=== PATIENT | female | born 1945 | race Hispanic/Latino ===

== ENCOUNTER 2017-03-04 08:41 | Outpatient (CLI) | payer BC, MEDICARE ==
--- OUTSIDE RECORDS SUMMARY | 2017-03-04 12:13 | XMS | Clinical Summary ---
:1945 Author Organization [facility] Address [address] [place] [address] Phone Care Team Providers Name Role Phone , Primary Care Provider Unavailable Allergies Active Allergy Reactions Severity Noted Date Comments Hydrocodone 02/05/2013 Current Medications No known medications Active Problems Not on file Social History Tobacco Use Types Packs/Day Years Used Date Former Smoker Quit: 08/26/2012 Alcohol Use Drinks/Week oz/Week Comments No Sex Assigned at Date Recorded Not on file Last Filed Vital Signs Vital Sign Reading Time Taken Blood Pressure 140/67 08/02/2014 12:35 PM CDT Pulse 89 08/02/2014 12:35 PM CDT Temperature 36.3 C (97.4 F) 08/02/2014 11:23 AM CDT Respiratory Rate 18 08/02/2014 12:35 PM CDT Oxygen Saturation 98% 08/02/2014 12:35 PM CDT Inhaled Oxygen Concentration - - Weight 74.4 kg (164 lb) 02/05/2013 4:19 PM CDT Height 152.4 cm (5') 02/05/2013 4:19 PM CDT Body Mass Index 32.03 02/05/2013 4:19 PM CDT Plan of Treatment Not on file Results Not on filefrom Last 3 Months
== END 2017-03-04 08:42 | disposition home or self-care (01) ==
PROVIDERS: ATTEND Family Medicine
DX: R13.10 Dysphagia, unspecified (principal); K21.9 Gastro-esophageal reflux disease without esophagitis
CPT/HCPCS: 74230; G8996-GN-CJ; G8997-GN-CJ; G8998-GN-CJ

== ENCOUNTER 2017-03-25 20:30 | Outpatient (CLI) | payer BC, MEDICARE | END 2017-03-25 20:31 | disposition home or self-care (01) | LOC: SLEEPLAB 20:30 | PROVIDERS: ATTEND Family Medicine | DX: G47.33 Obstructive sleep apnea (adult) (pediatric) (principal); E11.9 Type 2 diabetes mellitus without complications; I10 Essential (primary) hypertension | CPT/HCPCS: 95811 ==

== ENCOUNTER 2019-02-18 03:53 | Observation (INO) | payer BC, MEDICARE ==
[2019-02-18] MEDS ORDERED: Morphine 4 MG/ML VIAL SLOW IVP SCH (04:15)
[2019-02-18] MEDS ORDERED: Senokot S 8.6-50 MG TAB PO PRN (04:22)
[2019-02-18] MEDS ORDERED: Acetaminophen 325 MG TAB PO PRN (04:22)
[2019-02-18] MEDS ORDERED: Calcium Carbonate 500 MG ChewTAB PO PRN (04:22)
[2019-02-18] MEDS: Ondansetron PF 4 MG/2 ML Vial SLOW IVP PRN ×2 (04:24→20:40)
[2019-02-18] MEDS ORDERED: Prochlorperazine Maleate 5 MG TAB PO PRN (04:31)
[2019-02-18] MEDS ORDERED: Diphenoxylate HCl/Atropine Tablet PO PRN (04:31)
[2019-02-18] MEDS ORDERED: Ondansetron ODT 4 MG TAB PO PRN (04:31)
[2019-02-18] MEDS ORDERED: Dextrose 5% in Water 1,000 ML IV PRN (04:36)
[2019-02-18] MEDS ORDERED: Dextrose 50% Abboject 50 ML SYRINGE SLOW IVP PRN (04:36)
[2019-02-18] MEDS ORDERED: Dexamethasone 4 MG TAB PO SCH (04:45)
--- NOTE | 2019-02-18 04:47 | PDOC.FPRHP ---
- History of Present Illness Chief Complaint: Vomiting, Abdominal Pain History of Present Illness: Patient is a 73 yo female who presents as a direct admission from [place] ED where she originally presented with complaint of crampy & achy abdominal pain for 3 days. This was accompanied by back pain, nausea, and vomiting. Patient usually takes chemo every 4 days, and these symptoms started shortly after her most recent dose. Patient was diagnosed with Pancreatic cancer stage 4 in Jan 2019 with mets to bladder. Previously has hx of colon cancer in 2012 with colon resection and colostomy in place. In [place] ED she was given Zofran 8 mg IV and IV morphine 4 mg. She also had a positive UA for LE, WBCs, RBCs, 2+ bacteria and was given 1 dose Rocephin. Patient's oncologist at [facility] was called from [place] and stated that patient additionally was recently found to have mesenteric mets. Denies fever/chills, diarrhea, constipation, headache, vision or hearing changes. ED Course: Given 1L NS bolus, then 250/hr; Novolin 5 units, Rocephin 1 g @2345, Morphine 4mg x 1 dose, Zofran 8 mg x 1 dose - Allergies/Adverse Reactions Allergies Allergy/AdvReac Type Severity Reaction Status Date / Time codeine Allergy Mild Hives Verified 10/06/15 08:59 - Home Medications Medication Instructions Recorded Confirmed Type Valsartan [Diovan] 160 mg PO HS 10/06/15 02/18/19 History glipiZIDE [Glucotrol XL] 10 mg PO BID 10/06/15 02/18/19 History sitaGLIPtin Phosphate [Januvia] 100 mg PO DAILY 10/06/15 02/18/19 History Amlodipine [Norvasc] 5 mg PO DAILY 02/18/19 02/18/19 History Aspirin [Ecotrin Low Strength] 81 mg PO DAILY 02/18/19 02/18/19 History Dexamethasone [Decadron] 4 mg PO ASDIR 02/18/19 02/18/19 History Diphenoxylate HCl/Atropine 1 each PO Q6HR PRN 02/18/19 02/18/19 History [Diphenoxylate-Atrop 2.5-0.025] Dulaglutide [Trulicity] 0.75 mg SQ Q7DAYS 02/18/19 02/18/19 History Ondansetron [Zofran ODT] 4 mg PO Q8HR PRN 02/18/19 02/18/19 History Pioglitazone HCl [Actos] 15 mg PO DAILY 02/18/19 02/18/19 History Prochlorperazine Maleate 10 mg PO Q6HR PRN 02/18/19 02/18/19 History [Compazine] Sodium Bicarbonate 60 mg PO BID 02/18/19 02/18/19 History metFORMIN HCl [Metformin HCl ER] 500 mg PO BID 02/18/19 02/18/19 History Morphine IR Tab 15 mg PO Q8H PRN #45 tab 02/19/19 Rx - History PMHx: Pancreatic cancer with mets to bladder and mesentery; Colon Cancer in 2012 , T2DM, HTN, Glaucoma PSHx: Colostomy, appendectomy, urostomy, left nephrectomy (for donation), abdominal hernia failed repair FHx: unknown Social: Denies EtOH use. Former smoker for approx 25 years total, quit 15 years ago - Review of Systems General: reports: weight/appetite/sleep changes, fatigue. denies: fever/chills Eyes: denies: vision changes ENT: denies: nasal congestion Respiratory: denies: cough, congestion, shortness of breath Cardiovascular: denies: chest pain, edema Gastrointestinal: reports: nausea, vomiting, abdominal pain. denies: diarrhea, constipation, GI bleeding Skin: denies: rashes, lesions, jaundice Musculoskeletal: reports: pain. denies: swelling Neurological: reports: weakness. denies: numbness - Vital signs BP: 117/65 HR: 103 RR: 16 Tmax: 98.0F Pox: 99% on RA Wt: 65 kg - Physical Exam Constitutional: NAD, awake, alert and oriented, well developed HEENT: normocephalic and atraumatic, EOMI, conjunctiva clear, grossly normal vision, grossly normal hearing, MMM Neck: supple, no JVD Chest: no-tender to palpation Heart: RRR, normal S1/S2, no murmurs/rubs/gallops, pulses present, no edema Lungs: CTAB, no respiratory distress, good air movement, no rales/rhonchi, no wheezing Abdomen: soft, bowel sounds present, other -Abdomen: TTP over mid abdomen with firm mass felt over pancreas area. Colostomy placed over right abdomen, clean and dry with no apparent leakage. Musculoskeletal: normal structure, normal tone Neurological: no focal deficit, normal sensation Skin: no rash/lesions, good turgor Heme/Lymphatic: no unusual bruising or bleeding Psychiatric: normal mood and affect, intact recent and remote memory FMR H&P: Results - Labs Result Diagrams: 02/19/19 06:57 02/19/19 06:57 - Radiology Interpretation CT scan - abdomen Status: report reviewed by me (mesenteric mets, hydronephrosis right kidney with no signs obstruction, intrauterine fibroids) FMR H&P: A/P - Problem List (1) Pancreatic cancer Status: Acute Qualifiers: Pancreatic malignancy location: unspecified Qualified Code(s): C25.9 - Malignant neoplasm of pancreas, unspecified (2) UTI (urinary tract infection) Status: Acute Qualifiers: Urinary tract infection type: acute cystitis (3) Dehydration, mild Status: Acute Code(s): E86.0 - DEHYDRATION (4) History of colon cancer Status: Acute Code(s): Z85.038 - PERSONAL HISTORY OF MALIGNANT NEOPLASM OF LARGE INTESTINE (5) HTN (hypertension) Status: Acute Code(s): I10 - ESSENTIAL (PRIMARY) HYPERTENSION Qualifiers: Hypertension type: unspecified Qualified Code(s): I10 - Essential (primary ) hypertension (6) DM2 (diabetes mellitus, type 2) Status: Chronic Qualifiers: Diabetes mellitus long term care social worker insulin use: without long term care social worker use Diabetes mellitus complication status: with hyperglycemia Qualified Code(s): E11.65 - Type 2 diabetes mellitus with hyperglycemia - Plan Patient is a 73 yo female with complaint of abdominal pain and nausea who is admitted for UTI and dehydration #UTI, Abdominal pain -Rocephin 1 g given in [place] ED on 02/17/19 @ 2345 -continue Rocephin 1g q24h until cultures return, patient has hx of asymptomatic bacteriuria with no growth on culture -Urine Cx pending (done in [place] ER) -Zofran 4 mg IVP prn -Tylenol prn for pain (preferred per patient, states anything with codeine give her n/v) -Morphine 4 mg q4h prn for pain #Dehydration -maintenance IVF LR @ 150 ml/h -vitals q4h -monitor I/Os #Pancreatic Cancer, Stage 4 -diagnosed in Jan 2019 -known mets to bladder and mesentery -tx by MD Jain in [place] -also has hx of Colon Cancer treated with resection in 2013, has colostomy in place (clean and dry) #Acute Kidney Injury -BUN 59, Cr 1.88 -LR @ 125 ml/h #Hyponatremia -Na 130, will monitor with repeat CMP -encourage PO intake #Diabetes -initial BG in [place] 490 -likely secondary to steroid dosing given with chemo doses -place on mild SSI for duration of hospital stay -continue home meds #Hypertension -continue home meds #Glaucoma -tx with eye drops per patient, recently assessed by opthalmologist last month who told patient was improving -continue home meds Diet: Regular VTE: SCDs, Lovenox 40 Code: FULL Dispo: Stable, admitted to observation on telemetry. Continue empiric Rocephin until urine cx return. Anticipated LOS <2 days. FMR H&P: Upper Level - Pertinent history 73 year old female with metastatic colon cancer and pancreatic cancer presents with a three day history of N/V and inability to tolerate PO. Patient states she feels weak and has abdominal pain. Patient received 8 mg of morphine total since arriving at ED. She states pain is well controlled and she prefers just tylenol. Patient states she had chemotherapy 4 days ago. Three days ago is when she started to have N/V. Patient denies any fever, chills, chest pain, shortness of breath. She is currently comfortable. - Pertinent findings General: Alert and oriented x3. No acute distress. HEENT: MMM. EOMI. Card: RRR Resp: No acute respiratory distress Abdomen: Soft, non-tender Ext: No cyanosis or edema - Plan Date/Time: 02/18/19 0446 Criselda Garza, have evaluated this patient and agree with findings/plan as outlined by fashion intern resident. Pertinent changes/additions are listed here. Mild dehydration - Associated with persistent N/V x3 days - s/p NS bolus - Maintenance IVF - Monitor I&O's UTI - Associated with UTI - Rocephin 1 g given in [place] ED on 02/17/19 @ 6912 - Continue Rocephin 1g q24h until cultures return, patient has hx of asymptomatic bacteriuria with no growth on culture - Urine Cx pending (done in [place] ER) - Zofran 4 mg IVP prn - Tylenol prn for pain (preferred per patient, states anything with codeine give her n/v) - Morphine 4 mg q4h prn for pain Pancreatic Cancer, Stage 4 - Diagnosed in Jan 2019 - Known mets to bladder and mesentery - Tx by MD Jain in [place] - Also has hx of Colon Cancer treated with resection in 2012, has colostomy in place (clean and dry) Acute Kidney Injury - BUN 59, Cr 1.88 - s/p fluid bolus - Monitor - Maintenance IVF Hyponatremia - Na 130, will monitor with repeat CMP - Encourage PO intake Diabetes mellitus type II - Initial BG in [place] 490 - Likely secondary to steroid dosing given with chemo doses - Place on mild SSI for duration of hospital stay - Continue home meds Hypertension - Continue home meds Glaucoma - Tx with eye drops per patient, recently assessed by cashier and waiter/waitress last month who told patient was improving -continue home meds Diet: Regular VTE: SCDs, Lovenox 40 Code: FULL Dispo: Obs on telemetry. Anticipate LOS <48 hours. Addendum - Attending - Attending Attestation Date/Time: 02/20/19 6305 I personally evaluated the patient and discussed the management with Dr. Reese on 02/18/2019 I agree with the History, Examination, Assessment and Plan documented above with any addition or exceptions noted below - 73 yo female with lh/o type 2 DM, HTN, h/o colon cancer and recently diagnosed pancreatic cancer with mets to mesentary presented with crampy abdominal pain, back pain, and N/V. Denies any fever/chills, diarrhea. Had first round of chemotherapy 4 days ago. PMH/PSH/All/ Meds reviewed and agree with resident's documentation. Afebrile VSS. Exam repeated by me and agree with resident's findings. A/P: 1) Abd pain/N/V- most likely secondary to recent chemo. Continue IVF fluids, antiemetics and po trial. 2) EDWIN- continue IVF, 3) UTI- continue rocephin and await urine culture.
[2019-02-18] MEDS ORDERED: cefTRIAXone\\ROCEPHIN 1 GM in Sodium Chloride 0.9% 100 ML IVPB SCH ×2 (06:00→23:00)
[2019-02-18] MEDS: Lactated Ringer's 1,000 ML IV SCH ×2 (06:07→12:50)
[2019-02-18] MEDS: HumaLOG 300 UNITS/3 ML VIAL SC PRN ×2 (06:16→17:51)
[2019-02-18 08:39] VITALS: BMI 27.0
[2019-02-18] MEDS ORDERED: Dulaglutide [Trulicity] 0.75 MG SC SCH (09:00)
[2019-02-18] MEDS ORDERED: Sodium Bicarbonate Tab 325 MG TAB PO SCH (09:00)
[2019-02-18] MEDS ORDERED: metFORMIN XR 500 MG TAB PO SCH (09:00)
[2019-02-18] MEDS: metFORMIN XR 500 MG TAB PO SCH ×2 (09:45→17:51)
[2019-02-18] MEDS: Alogliptin 25 MG TAB PO SCH (09:45)
[2019-02-18] MEDS: Amlodipine 5 MG TAB PO SCH (09:45)
[2019-02-18] MEDS: Aspirin 81 mg Enteric Coated Tablet PO SCH (09:45)
[2019-02-18] MEDS: Enoxaparin Sodium 40 MG/0.4 ML SYRINGE SC SCH (09:45)
[2019-02-18] MEDS: Pioglitazone HCl 15 MG TAB PO SCH (09:45)
[2019-02-18] MEDS: Morphine 4 MG/ML VIAL SLOW IVP PRN ×2 (09:48→20:42)
[2019-02-18 12:14] LABS: Anion Gap 10 mmol/L (10-20); BUN (Urea Nitrogen) 43 mg/dL (9.8-20.1); Calc. Creatinine Clearance 42 mL/min (70-130); Calcium 8.9 mg/dL (7.8-10.44); Carbon Dioxide 19 mmol/L (23-31); Chloride 110 mmol/L (98-107); Estimated GFR-MDRD 42; Glucose 178 mg/dL (83-110); Potassium 4.3 mmol/L (3.5-5.1); Sodium 135 mmol/L (136-145)
[2019-02-18] MEDS ORDERED: Valsartan 80 MG TAB PO SCH (21:00)
[2019-02-18] MEDS ORDERED: FLU VACC TS2019-20(65YR UP)/PF 180 MCG/0.5 ML SYRINGE IM ONE (21:00)
[2019-02-19] MEDS: Ondansetron PF 4 MG/2 ML Vial SLOW IVP PRN (04:53)
[2019-02-19] MEDS: HumaLOG 300 UNITS/3 ML VIAL SC PRN (04:59)
--- NOTE | 2019-02-19 06:50 | PDOC.FM ---
- Subjective Subjective: Pt continues with abdominal/epigastric pain. It is sharp in nature, waxes/ wanes. She is experiencing breakthrough pain around tylenol use. She would like for the pain to be better controlled. She becomes nauseated with most pain medications other than morphine. She cannot take ibuprofen due to having one kidney. - Objective Vital Signs & Weight: Vital Signs (12 hours) Temp Pulse Resp BP Pulse Ox 02/19/19 02:08 97 02/19/19 00:39 86 14 132/68 96 02/18/19 20:40 98.8 F 94 20 166/74 H 97 Weight Weight 64.818 kg I&O: 02/17/19 02/18/19 02/19/19 06:59 06:59 06:59 Intake Total 5 2634 Balance 5 2634 Result Diagrams: 02/19/19 06:57 02/19/19 06:57 Phys Exam - Physical Examination Constitutional: NAD HEENT: PERRLA, moist MMs Respiratory: no wheezing, no rales, clear to auscultation bilateral Cardiovascular: RRR, no significant murmur Gastrointestinal: soft, no distention, positive bowel sounds tender to palpation; pt has ostomy Musculoskeletal: no edema, pulses present Psychiatric: normal affect, A&O x 3 Dx/Plan (1) Dehydration, mild Code(s): E86.0 - DEHYDRATION Status: Acute (2) History of colon cancer Code(s): Z85.038 - PERSONAL HISTORY OF MALIGNANT NEOPLASM OF LARGE INTESTINE Status: Acute (3) Pancreatic cancer Status: Acute Qualifiers: Pancreatic malignancy location: unspecified Qualified Code(s): C25.9 - Malignant neoplasm of pancreas, unspecified (4) UTI (urinary tract infection) Status: Acute Qualifiers: Urinary tract infection type: acute cystitis (5) HTN (hypertension) Code(s): I10 - ESSENTIAL (PRIMARY) HYPERTENSION Status: Acute Qualifiers: Hypertension type: unspecified Qualified Code(s): I10 - Essential (primary ) hypertension (6) DM2 (diabetes mellitus, type 2) Status: Chronic Qualifiers: Diabetes mellitus branch administrator insulin use: without [place] [facility] use Diabetes mellitus complication status: with hyperglycemia Qualified Code(s): E11.65 - Type 2 diabetes mellitus with hyperglycemia - Plan Plan: Patient is a 73 yo female with complaint of abdominal pain and nausea who is admitted for UTI and dehydration #UTI, Abdominal pain -Rocephin 1 g given in [place] ED on 02/17/19 @ 2345 -continue Rocephin 1g q24h until cultures return, patient has hx of asymptomatic bacteriuria with no growth on culture -Urine Cx pending (done in [place] ER) -Zofran 4 mg IVP prn -Tylenol prn for pain (preferred per patient, states anything with codeine give her n/v) -Morphine 4 mg q4h prn for pain; consider switch to PO morphine for breakthrough pain and follow up with [facility] #Dehydration -maintenance IVF LR @ 150 ml/h; creatinine back to baseline -vitals q4h -monitor I/Os #Pancreatic Cancer, Stage 4 -diagnosed in Jan 2019 -known mets to bladder and mesentery -tx by MD Jain in [place] -also has hx of Colon Cancer treated with resection in 2012, has colostomy in place (clean and dry) #Acute Kidney Injury -BUN 59, Cr 1.88; creatinine back to baseline today -LR @ 125 ml/h #Hyponatremia - resolved -Na 135 -encourage PO intake #Diabetes -initial BG in [place] 490 -likely secondary to steroid dosing given with chemo doses -place on mild SSI for duration of hospital stay -continue home meds #Hypertension -continue home meds #Glaucoma -tx with eye drops per patient, recently assessed by opthalmologist last month who told patient was improving -continue home meds Disposition: pt is likely ok for discharge today once we are able to control her pain with PO medications.
[2019-02-19 07:32] LABS: Hemoglobin 10.2 g/dL (12.0-16.0); Mean Corpuscular HGB CONC 34.7 g/dL (32.0-36.0); Mean Corpuscular Hemoglobin 31.9 pg (27.0-31.0); Mean Platelet Volume 7.4 fL (7.4-10.4); Platelet Count 108 thou/uL (130-400); RBC Distribution Width 11.8 % (11.5-14.5); White Blood Cell (WBC) Count 3.7 thou/uL (4.8-10.8)
[2019-02-19 07:33] LABS: ALT (SGPT) 7 U/L (8-55); AST (SGOT) 13 U/L (5-34); Albumin 3.1 g/dL (3.4-4.8); Alkaline Phosphatase 42 U/L (40-110); Anion Gap 9 mmol/L (10-20); BUN (Urea Nitrogen) 31 mg/dL (9.8-20.1); Bilirubin, Total 0.2 mg/dL (0.2-1.2); Calc. Creatinine Clearance 43 mL/min (70-130); Calcium 8.8 mg/dL (7.8-10.44); Carbon Dioxide 20 mmol/L (23-31); Chloride 110 mmol/L (98-107); Estimated GFR-MDRD 43; Globulin 2.9 g/dL (2.4-3.5); Glucose 215 mg/dL (83-110); Potassium 4.1 mmol/L (3.5-5.1); Sodium 135 mmol/L (136-145)
[2019-02-19] MEDS: Morphine 4 MG/ML VIAL SLOW IVP PRN (09:11)
[2019-02-19] MEDS: Amlodipine 5 MG TAB PO SCH (09:12)
[2019-02-19] MEDS: Aspirin 81 mg Enteric Coated Tablet PO SCH (09:12)
[2019-02-19] MEDS: Pioglitazone HCl 15 MG TAB PO SCH (09:12)
[2019-02-19] MEDS: metFORMIN XR 500 MG TAB PO SCH (09:12)
[2019-02-19] MEDS: Alogliptin 25 MG TAB PO SCH (09:12)
[2019-02-19] MEDS: Enoxaparin Sodium 40 MG/0.4 ML SYRINGE SC SCH (09:12)
[2019-02-19 14:03] VITALS: BP 131/69; TEMP 98.7
--- NOTE | 2019-02-19 17:14 | PRG ---
DATE OF SERVICE: 02/19/2019 The patient unfortunately has metastatic prostate cancer. We are adjusting her pain medications. She was admitted with some abdominal pain, which is already improved. Job ID: [id number]
--- NOTE | 2019-02-20 14:27 | DIS ---
DATE OF ADMISSION: 02/18/2019 DATE OF DISCHARGE: 02/19/2019 RESIDENT: Valdo Eddy DO ADMITTING ATTENDING: Latha Saldivar MD DISCHARGE ATTENDING: Alfonzo Rosales MD CONSULTS: Palliative Care. PROCEDURES: None. PRIMARY DIAGNOSES: 1. Pancreatic cancer stage IV. 2. Abdominal pain secondary to pancreatic cancer. 3. Urinary tract infection. 4. Acute kidney injury. 5. Hyponatremia. 6. Diabetes. SECONDARY DIAGNOSES: 1. Hypertension. 2. Glaucoma. DISCHARGE MEDICATIONS: 1. Januvia 100 mg p.o. daily. 2. Glipizide 10 mg p.o. b.i.d. 3. Valsartan 160 mg p.o. at bedtime. 4. Trulicity 0.75 mg subcu q.7 days. 5. Decadron 4 mg p.o. as directed. 6. Diphenoxylate HCL/atropine 2.5/0.025 p.o. q.6 hours p.r.n. 7. Actos 15 mg p.o. daily. 8. Compazine 10 mg p.o. q.6 p.r.n. 9. Norvasc 5 mg p.o. daily. 10. Zofran 4 mg p.o. q.8 p.r.n. 11. Metformin 500 mg p.o. b.i.d. 12. Aspirin 81 mg p.o. daily. 13. Sodium Bicarbonate 60 mg PO BID. 14. Morphine IR 15 mg p.o. q.8 hours p.r.n. DISCONTINUED MEDICATIONS: None. HISTORY OF PRESENT ILLNESS/HOSPITAL COURSE: Albina Ramírez is a 73-year-old with past medical history significant for stage IV pancreatic cancer, who presented as a direct admission from outside ED where she complained of crampy and achy abdominal pain for 3 days. She also complained of back pain, nausea, vomiting. She had been taking chemo every 4 days for her pancreatic cancer stage IV with metastasis to the bladder. In outside ED, she was given Zofran 8 mg IV and IV morphine 4 mg to help the pain. She also was found to have a UA positive for leukocyte esterase, white blood cells, rbc's, 2+ bacteria. She was given one dose of Rocephin at this time. Upon transfer, main goal was to control her pain. Pain was controlled with IV morphine. She stayed overnight and was observed for her pain. The pain was likely secondary to her pancreatic cancer stage IV. It was decided we would give her morphine p.o. in the outpatient setting and advised her to follow up with her oncologist at [facility] to further control her pain. She agreed with this plan and was discharged appropriately. For UTI, she was treated with 2 doses of ceftriaxone. She becoming little dehydrated, has an EDWIN with a creatinine of 1.88, and by the time she was discharged, her creatinine level was 1.22 at her baseline, corrected with fluid resuscitation. She was also found to be hyponatremic that resolved with fluid resuscitation at time of discharge. DISPOSITION: Stable. DISCHARGE INSTRUCTIONS: 1. Location: [facility]. 2. Diet: No restrictions. 3. Activity: Ad ling. 4. Followup: Follow up with oncologist at [facility], Dr. Reese as soon as she can. Job ID: [id number] [id number]
== END 2019-02-19 14:03 | disposition home or self-care (01) ==
LOC: 2SW 03:53 → INTOOBSV 03:53
PROVIDERS: ADMIT Student in an Organized Health Care Education/Training Program; ATTEND Student in an Organized Health Care Education/Training Program
DX: N30.00 Acute cystitis without hematuria (principal); E86.0 Dehydration; C25.9 Malignant neoplasm of pancreas, unspecified; N17.9 Acute kidney failure, unspecified; E87.1 Hypo-osmolality and hyponatremia; E11.9 Type 2 diabetes mellitus without complications; I10 Essential (primary) hypertension; H40.9 Unspecified glaucoma; Z79.82 Long term (current) use of aspirin; Z79.84 Long term (current) use of oral hypoglycemic drugs; Z79.899 Other long term (current) drug therapy; Z88.5 Allergy status to narcotic agent; Z85.038 Personal history of other malignant neoplasm of large intestine; Z87.891 Personal history of nicotine dependence; Z90.49 Acquired absence of other specified parts of digestive tract
CPT/HCPCS: 36415; 36416; 80048; 80053; 85027; 90471; 90662; 96361; 96365; 96372; 96375; 96376; G0008; G0378; J0696; J1650; J2270; J2405; J3490; Q0162; Q0164

== ENCOUNTER 2019-03-18 21:28 | Inpatient (IN) | payer BC, MEDICARE ==
[2019-03-18] MEDS ORDERED: Morphine 4 MG/ML VIAL ONE (22:13)
[2019-03-18] MEDS ORDERED: Promethazine HCl 25 MG/ML VIAL ONE (22:13)
[2019-03-18] MEDS ORDERED: metroNIDAZOLE 500 MG/100 ML BAG ONE (22:13)
--- NOTE | 2019-03-18 22:25 | PDOC.FPRHP ---
- History of Present Illness Chief Complaint: n/v/diarrhea History of Present Illness: Pt presents w/ hx of n/v/d since Tuesday. Diarrhea is watery and foul- smelling. Has uretero-colostomy bag. Currently undergoing chemo [id number] for metastatic pancreatic cancer. Has completed two cycles. Went to [facility] for unrelenting diarrhea and vomiting and was discharged Tuesday and does not know the diagnosis. Returned to [place] ED since she had 5 more episodes of diarrhea today and 3-5 episodes yesterday. PO intake is decreased, not much food, only a little bit of liquids stays down. Vomits after food has been in her stomach for a while; denies dysphagia or vomiting immediately upon eating. + subjective fevers. Denies sick contacts. ED Course: Given 1800 mL NS, zosyn 4.5 g, antiemetics and pain medications at outside ED. At [facility] ED received another 500mL NS and vanc and flagyl. - Allergies/Adverse Reactions Allergies Allergy/AdvReac Type Severity Reaction Status Date / Time codeine Allergy Mild Hives Verified 03/19/19 01:42 Sulfa (Sulfonamide Allergy Verified 03/19/19 01:42 Antibiotics) - Home Medications Medication Instructions Recorded Confirmed Type Valsartan [Diovan] 40 mg PO HS 10/06/15 03/19/19 History glipiZIDE [Glucotrol XL] 10 mg PO BID 10/06/15 03/19/19 History sitaGLIPtin Phosphate [Januvia] 100 mg PO DAILY 10/06/15 03/19/19 History Amlodipine [Norvasc] 5 mg PO DAILY 02/18/19 03/19/19 History Dexamethasone [Decadron] 4 mg PO ASDIR 02/18/19 03/19/19 History Diphenoxylate HCl/Atropine 1 each PO Q6HR PRN 02/18/19 03/19/19 History [Diphenoxylate-Atrop 2.5-0.025] Dulaglutide [Trulicity] 0.75 mg SQ Q7DAYS 02/18/19 03/19/19 History Ondansetron [Zofran ODT] 4 mg PO Q8HR PRN 02/18/19 03/19/19 History Pioglitazone HCl [Actos] 15 mg PO DAILY 02/18/19 03/19/19 History Prochlorperazine Maleate 10 mg PO Q6HR PRN 02/18/19 03/19/19 History [Compazine] Sodium Bicarbonate 650 mg PO BID 02/18/19 03/19/19 History metFORMIN HCl [Metformin HCl ER] 500 mg PO BID 02/18/19 03/19/19 History Morphine IR Tab 15 mg PO Q8H PRN #45 tab 02/19/19 03/19/19 Rx Metoclopramide HCl 5 mg PO TID 03/19/19 03/19/19 History - History PMHx: Pancreatic cancer with mets to bladder and mesentery; Colon Cancer in 2012 , T2DM, HTN, Glaucoma PSHx: Colostomy, appendectomy, urostomy, left nephrectomy (for donation), abdominal hernia failed repair FHx: unknown Social: Denies EtOH use. Former smoker for approx 25 years total, quit 15 years ago - Review of Systems General: reports: fever/chills ENT: denies: nasal congestion Respiratory: denies: cough, congestion, shortness of breath Cardiovascular: denies: chest pain, palpitation Gastrointestinal: reports: nausea, vomiting, diarrhea, abdominal pain Genitourinary: denies: dysuria, polyuria Skin: denies: rashes, jaundice Musculoskeletal: reports: pain Neurological: denies: syncope Psychological: denies: anxiety, depression - Vital signs BP: 138/82, Pulse: 93, Resp: 21, O2 sat: 100 on Room Air, Time: 03/18/2019 22: 00. - Physical Exam Constitutional: NAD, awake, alert and oriented, other (tired appearing, somnolent) HEENT: normocephalic and atraumatic, conjunctiva clear, no scleral icterus, grossly normal hearing, MMM Neck: trachea midline, no thyromegaly Heart: RRR, normal S1/S2, no murmurs/rubs/gallops Lungs: CTAB, no respiratory distress, no wheezing Abdomen: soft, bowel sounds present, no masses/distention, other (moderately tender diffusely) Musculoskeletal: normal structure, normal tone Neurological: no focal deficit Skin: no rash/lesions Heme/Lymphatic: no unusual bruising or bleeding Psychiatric: normal mood and affect FMR H&P: Results - Labs Result Diagrams: 03/19/19 04:48 - Radiology Interpretation CT scan - abdomen Status: image reviewed by me, report reviewed by me Additional comment: IMPRESSION: 1. Stable heterogeneous and soft tissue density in the left lateral abdomen which is again seen in the superior aspect of the large left posterolateral abdominal wall hernia and extending into the pelvis. Again the exact etiology is uncertain. Findings again could potentially be related to omental metastatic disease versus an infectious or inflammatory process. 2. Stable right hydronephrosis and hydroureter with stable dilatation to the level of the urostomy. 3. The pancreas is not well-defined on this examination due to atrophy and lack of enhancement. There was pancreatic ductal dilatation on the prior exam which is less well delineated on the current study. Chest x-ray Status: image reviewed by me, report reviewed by me Additional comment: performed at [facility] prior to transfer. 1. No acute cardiopulmonary findings. 2. Right-sided implantable vascular access port. 3. Evidence for right-sided old (inactive) pulmonary granulomatous disease. FMR H&P: A/P - Problem List (1) Sepsis Current Visit: Yes Status: Acute Code(s): A41.9 - SEPSIS, UNSPECIFIED ORGANISM (2) Complicated UTI (urinary tract infection) Current Visit: No Status: Acute Code(s): N39.0 - URINARY TRACT INFECTION, SITE NOT SPECIFIED (3) HTN (hypertension) Current Visit: No Status: Chronic Code(s): I10 - ESSENTIAL (PRIMARY) HYPERTENSION Qualifiers: Hypertension type: unspecified Qualified Code(s): I10 - Essential (primary ) hypertension (4) History of colon cancer Current Visit: No Status: Chronic Code(s): Z85.038 - PERSONAL HISTORY OF MALIGNANT NEOPLASM OF LARGE INTESTINE (5) Pancreatic cancer Current Visit: No Status: Chronic Qualifiers: Pancreatic malignancy location: unspecified Qualified Code(s): C25.9 - Malignant neoplasm of pancreas, unspecified (6) DM2 (diabetes mellitus, type 2) Current Visit: No Status: Chronic Qualifiers: Diabetes mellitus vermin exterminator insulin use: without shelter use Diabetes mellitus complication status: with hyperglycemia Qualified Code(s): E11.65 - Type 2 diabetes mellitus with hyperglycemia (7) Diarrhea Current Visit: Yes Status: Acute Code(s): R19.7 - DIARRHEA, UNSPECIFIED - Plan 73 yo F w/ multiple comorbidities admitted for: Sepsis 2/2 likely complicated UTI (pyelonephritis) - transfer from [place] ED. Lactic 1.6 on admission. Sepsis criteria met w/ tachycardia, WBC at 4.5 - Monitor on telemetry for tachycardia - UA w/ 3+ bacteria, protein, glucose and darryl pyuria. - CT abd/pelvis w/ hydronephrosis of R kidney, pt does not have left kidney ( donated it) - R ureter drains into ostomy. - Zosyn for empiric coverage, last culture on 03/14 sensitive to zosyn. Pt has had recent hospitalization. - Renal dose of zosyn 2.25 g q6h. - IVF of 150 mL/hr of LR - AM labs CBC and BMP. Diarrhea - stool studies pending. - Received 1 dose flagyl in ED - will hold for now. - C Diff, campylobacter, O&P, stool cx ordered by ER and will collect BM. Pancreatic cancer, metastatic Hx of colon cancer - will continue to monitor - VTE PPx of lovenox EDWIN likely 2/2 to dehydration and fluid losses from diarrhea - Cr 1.27. Fluid resuscitate. Code: FULL, althoug h pt was quite somnolent and drifted off to sleep when answering questions. Will verify in the morning. VTE PPx: LVX Diet: heart healthy and carbohydrate consistent. Tina Orellana MD PGY1 Disposition/LOS: Admit to inpatient telemetry. LOS > 48H. FMR H&P: Upper Level - Pertinent history 73 yo f with pmhx of pancreatic cancer c/o n/v/d for three days, admitted for sepsis 2/2 complicated UTI. V: HR 105, O2 sat: 100% RA RR: 22 BP: 123/102 PE: NAD Tachycardic CTAB no edema 2+ pulses Labs Cr 1.27 UA: +LE, moderate blood, 3+ bacteria, +glucose, +protein, negative nitrites wbc 4.5 H/H 10.2/29.[address] abd/pelvis right hydronephrosis possible omental mets vs inflammatory process A/p: sepsis 2/2 complicated UTI- -IV zosyn since last urine culture was sens to this, fluids, morphine prn pain foul smelling watery diarrhea- -r/o c. diff, recent hospital admission restart home meds for chronic conditions Turner Gutierrez MD, PGY-3 - Plan Date/Time: 03/18/19 0130 I, [], have evaluated this patient and agree with findings/plan as outlined by internal investigator resident. Pertinent changes/additions are listed here. Addendum - Attending - Attending Attestation Date/Time: 03/19/19 7226 I personally evaluated the patient and discussed the management with Dr. Orellana /Brenda I agree with the History, Examination, Assessment and Plan documented above with any addition or exceptions noted below. See my event note for details.
[2019-03-18] MEDS ORDERED: Dextrose 5% in Water 1,000 ML IV PRN (23:21)
[2019-03-18] MEDS ORDERED: Dextrose 50% Abboject 50 ML SYRINGE SLOW IVP PRN (23:21)
[2019-03-18] MEDS ORDERED: HumaLOG 300 UNITS/3 ML VIAL SC PRN (23:21)
[2019-03-18] MEDS ORDERED: Ondansetron ODT 4 MG TAB PO PRN (23:21)
--- NOTE | 2019-03-18 23:45 | PDOC.EVN ---
Addendum - Attending - Attending Attestation Date/Time: 03/18/19 7345 I personally evaluated the patient and discussed the management with Dr. Orellana /Brenda I agree with the History, Examination, Assessment and Plan documented above with any addition or exceptions noted below. 73 yo HF PMH stage 4 pancreatic cancer. Presents w/ 3 day hx abdominal pain and watery, foul smelling diarrhea. Recently hospitalized in the past month at [facility]. Labs show leukopenia. CXR and CT abd/pelv unremarkable. UA concerning for UTI. Met sepsis criteria at outside ER with Fever 100.7F, low WBC, and tachycardia to 110. Admit to medical for sepsis 2/2 complicated UTI vs C. diff colitis. continue IV zosyn. stool studies pending. See internet network specialist note for additional details.
[2019-03-19] MEDS ORDERED: Piperacillin/Tazobactam 2.25 GM in Sodium Chloride 0.9% 100 ML IVPB SCH (00:30)
[2019-03-19 01:34] VITALS: BMI 26.2
[2019-03-19] MEDS: Lactated Ringer's 1,000 ML IV SCH ×4 (02:23→20:16)
[2019-03-19] MEDS: Ondansetron PF 4 MG/2 ML Vial IVP PRN (02:58)
[2019-03-19 05:35] LABS: Anion Gap 13 mmol/L (10-20); BUN (Urea Nitrogen) 14 mg/dL (9.8-20.1); Calc. Creatinine Clearance 49 mL/min (70-130); Carbon Dioxide 14 mmol/L (23-31); Chloride 114 mmol/L (98-107); Estimated GFR-MDRD 52; Glucose 228 mg/dL (83-110); Potassium 3.4 mmol/L (3.5-5.1); Sodium 138 mmol/L (136-145)
[2019-03-19 06:33] LABS: Band 15 % (5-11); Eosinophils 2 % (0-10); Hemoglobin 8.2 g/dL (12.0-16.0); Lymphocytes 15 % (21-51); MDiff Complete? YES; Mean Corpuscular HGB CONC 34.6 g/dL (32.0-36.0); Mean Corpuscular Hemoglobin 32.1 pg (27.0-31.0); Mean Corpuscular Volume 92.7 fL (78.0-98.0); Mean Platelet Volume 9.3 fL (7.4-10.4); Monocytes 4 % (0-10); Neutrophil 64 % (42-75); Platelet Count 70 thou/uL (130-400); Platelet Morphology Comment Appears Decreased; RBC Distribution Width 12.5 % (11.5-14.5); Red Blood Cell (RBC) Count 2.57 mill/uL (4.20-5.40); White Blood Cell (WBC) Count 3.1 thou/uL (4.8-10.8)
[2019-03-19] MEDS: Piperacillin/Tazobactam 2.25 GM in Sodium Chloride 0.9% 100 ML IVPB SCH ×4 (06:35→23:17)
--- NOTE | 2019-03-19 06:52 | PDOC.FM ---
- Subjective Subjective: Pt states she is having continued nausea, diarrhea, and abdominal pain. She states she has had 4 water BMs this morning. - Objective MAR Reviewed: Yes Vital Signs & Weight: Vital Signs (12 hours) Temp Pulse Resp BP Pulse Ox 03/19/19 04:00 101.1 F H 118 H 18 157/67 H 99 03/19/19 01:30 99 03/19/19 01:11 101.8 F H 120 H 20 148/77 H 99 Weight Weight 62.868 kg Result Diagrams: 03/19/19 04:48 03/19/19 04:48 Phys Exam - Physical Examination Constitutional: NAD HEENT: moist MMs Neck: no JVD Respiratory: no wheezing, clear to auscultation bilateral Cardiovascular: RRR, no significant murmur, no rub Gastrointestinal: soft, no distention, positive bowel sounds Tender to palpation, worse in the epigastric region Musculoskeletal: pulses present Posterior hernia on the left lower region of back Neurological: moves all 4 limbs Psychiatric: A&O x 3 Skin: cap refill <2 seconds Dx/Plan (1) Complicated UTI (urinary tract infection) Code(s): N39.0 - URINARY TRACT INFECTION, SITE NOT SPECIFIED Status: Acute (2) Diarrhea Code(s): R19.7 - DIARRHEA, UNSPECIFIED Status: Acute (3) DM2 (diabetes mellitus, type 2) Status: Chronic Qualifiers: Diabetes mellitus bed bug exterminator insulin use: without skilled nursing use Diabetes mellitus complication status: with hyperglycemia Qualified Code(s): E11.65 - Type 2 diabetes mellitus with hyperglycemia (4) HTN (hypertension) Code(s): I10 - ESSENTIAL (PRIMARY) HYPERTENSION Status: Chronic Qualifiers: Hypertension type: unspecified Qualified Code(s): I10 - Essential (primary ) hypertension - Plan Plan: This is a 73 yo female with a pmh of DM2, HTN, pancreatic cancer Sepsis 2/2 UTI +/- pyelonephritis (some fat stranding around right kidney on CT) -Continue zosyn, culture on 03/14 shows klebsiella sensitive to zosyn, would deescalate to rocephin pending clinical picture -Pending blood/urine cultures done in [place] ER -Right kidney draining to urostomy Diarrhea -Stool negative for C. diff, shiga toxin, ova/parasites Nausea -Restarting home compazine Pancreatic cancer, metastatic Hx of colon cancer EDWIN 2/2 dehydration -Fluid resuscitation -Will follow Non-anion gap, hyperchloremic metabolic acidosis -Likely from NS fluid resuscitation (3300ml NS in last 24 hr) -Currently on LR, will switch to 1/2 NS if this does not improve -Repeat BMP at 1200 today Hypokalemia -Replacing DM2 -Continuing metformin, actos, jardience -Pending Hgb A1c HTN -Restart home medications as BP is elevated at this point Addendum - Attending - Attending Attestation Date/Time: 03/19/19 7964 I personally evaluated the patient and discussed the management with Dr. Arellano. I agree with the History, Examination, Assessment and Plan documented above with any addition or exceptions noted below. D/c oral agents and start SSI for inpatient stay. Continue antibiotics and fluids.
[2019-03-19] MEDS ORDERED: Non-Formulary Item 1 EACH (Prochlorperazine Maleate [Compazine] 10 MG) PO PRN (07:01)
[2019-03-19] MEDS ORDERED: Ondansetron ODT 4 MG TAB PO PRN ×2 (07:01→07:16)
[2019-03-19] MEDS ORDERED: Prochlorperazine Maleate 5 MG TAB PO PRN (07:13)
[2019-03-19] MEDS ORDERED: Dexamethasone 4 MG TAB PO SCH ×2 (07:15)
[2019-03-19] MEDS: Potassium Chloride 20 MEQ TAB PO SCH ×2 (07:57→17:52)
[2019-03-19] MEDS: Amlodipine 5 MG TAB PO SCH (08:02)
[2019-03-19] MEDS: Metoclopramide HCl 10 MG TAB PO SCH ×3 (08:03→20:16)
[2019-03-19] MEDS: Sodium Bicarbonate Tab 325 MG TAB PO SCH ×2 (08:03→20:15)
[2019-03-19 08:05] LABS: Hemoglobin A1c 7.2 % (4.0-6.0)
[2019-03-19] MEDS ORDERED: sitaGLIPtin Phosphate 25 MG TAB PO SCH (09:00)
[2019-03-19] MEDS ORDERED: Pioglitazone HCl 15 MG TAB PO SCH (09:00)
[2019-03-19] MEDS ORDERED: Non-Formulary Item 1 EACH (Metoclopramide Hcl [Metoclopramide Hcl] 5 MG) PO SCH (09:00)
[2019-03-19] MEDS ORDERED: Enoxaparin Sodium 40 MG/0.4 ML SYRINGE SC SCH (09:00)
[2019-03-19] MEDS ORDERED: metFORMIN XR 500 MG TAB PO SCH (09:00)
[2019-03-19] MEDS ORDERED: Alogliptin 25 MG TAB PO SCH (09:00)
[2019-03-19] MEDS ORDERED: Insulin Glargine 10 UNITS in Pre-Filled Syringe SC SCH (12:30)
[2019-03-19] MEDS ORDERED: Insulin Regular 300 UNITS/3 ML VIAL SC SCH (12:30)
[2019-03-19 13:43] LABS: Anion Gap 12 mmol/L (10-20); BUN (Urea Nitrogen) 13 mg/dL (9.8-20.1); Calc. Creatinine Clearance 46 mL/min (70-130); Calcium 8.5 mg/dL (7.8-10.44); Carbon Dioxide 18 mmol/L (23-31); Chloride 112 mmol/L (98-107); Estimated GFR-MDRD 48; Glucose 265 mg/dL (83-110); Potassium 3.7 mmol/L (3.5-5.1); Sodium 138 mmol/L (136-145)
[2019-03-19] MEDS: HumaLOG 300 UNITS/3 ML VIAL SC PRN (18:24)
[2019-03-19] MEDS: Diphenoxylate HCl/Atropine Tablet PO PRN (20:16)
[2019-03-19] MEDS ORDERED: VALSARTAN 40 MG PO SCH (21:00)
[2019-03-19] MEDS: Valsartan 80 MG TAB PO SCH (21:34)
[2019-03-20] MEDS: Lactated Ringer's 1,000 ML IV SCH ×4 (03:47→20:54)
[2019-03-20] MEDS: Morphine IR Tab 15 MG TAB PO PRN ×2 (03:47→17:53)
[2019-03-20] MEDS: Diphenoxylate HCl/Atropine Tablet PO PRN ×2 (03:50→09:42)
[2019-03-20] MEDS: Piperacillin/Tazobactam 2.25 GM in Sodium Chloride 0.9% 100 ML IVPB SCH ×3 (05:15→17:55)
--- NOTE | 2019-03-20 07:40 | PDOC.FM ---
- Subjective Subjective: Pt is feeling less nauseated and is trying breakfast this morning. She states her pain is better controlled today. She does state that she has trouble swallowing pills, primarily her potassium. She also indicates that she would like to switch to insulin. She reports 5 episodes of loose stools overnight but feels like it is lightening up. - Objective MAR Reviewed: Yes Vital Signs & Weight: Vital Signs (12 hours) Temp Pulse Resp BP Pulse Ox 03/20/19 04:00 98.9 F 78 14 145/67 H 99 03/20/19 00:00 85 20 117/56 L 03/19/19 20:00 99.2 F 87 20 106/54 L 100 Weight Admit Weight 62.868 kg Weight 64.183 kg I&O: 03/19/19 03/20/19 03/21/19 06:59 06:59 06:59 Intake Total 1790 Output Total 800 Balance 990 Result Diagrams: 03/20/19 07:46 03/20/19 07:46 Phys Exam - Physical Examination Constitutional: NAD HEENT: moist MMs Neck: no JVD Respiratory: no wheezing, clear to auscultation bilateral Cardiovascular: RRR, no significant murmur Gastrointestinal: soft, no distention, positive bowel sounds epigastric pain, diffuse abdominal pain Musculoskeletal: no edema, pulses present Neurological: moves all 4 limbs Psychiatric: A&O x 3 Skin: cap refill <2 seconds Dx/Plan (1) Complicated UTI (urinary tract infection) Code(s): N39.0 - URINARY TRACT INFECTION, SITE NOT SPECIFIED Status: Acute (2) Diarrhea Code(s): R19.7 - DIARRHEA, UNSPECIFIED Status: Acute (3) DM2 (diabetes mellitus, type 2) Status: Chronic Qualifiers: Diabetes mellitus termite treater helper insulin use: without termite treater helper use Diabetes mellitus complication status: with hyperglycemia Qualified Code(s): E11.65 - Type 2 diabetes mellitus with hyperglycemia (4) HTN (hypertension) Code(s): I10 - ESSENTIAL (PRIMARY) HYPERTENSION Status: Chronic Qualifiers: Hypertension type: unspecified Qualified Code(s): I10 - Essential (primary ) hypertension - Plan Plan: This is a 73 yo female with a pmh of DM2, HTN, pancreatic cancer Sepsis 2/2 UTI +/- pyelonephritis (some fat stranding around right kidney on CT) -Continue zosyn, culture on 03/14 shows klebsiella sensitive to zosyn, would deescalate to rocephin pending clinical picture -Pending blood/urine cultures done in [place] ER -Right kidney draining to urostomy -Afebrile overnight Diarrhea -Stool negative for C. diff, shiga toxin, ova/parasites Nausea -Restarting home compazine Pancreatic cancer, metastatic Hx of colon cancer EDWIN 2/2 dehydration -Fluid resuscitation -Will follow Non-anion gap, hyperchloremic metabolic acidosis, improving -Likely from NS fluid resuscitation (3300ml NS in last 24 hr) -Currently on LR, will switch to 1/2 NS if this does not improve Hypokalemia -Replacing with oral solution due to pill size DM2 -Continuing metformin, actos, jardience -Pending Hgb A1c HTN -Restart home medications as BP is elevated at this point Addendum - Attending - Attending Attestation Date/Time: 03/20/19 1203 I personally evaluated the patient and discussed the management with Dr. Arellano. I agree with the History, Examination, Assessment and Plan documented above with any addition or exceptions noted below. Note acidosis resolved. Diarrhea and nausea improving. Lomotil PRN. Transition to PO antibiotics. We have d/c'd her PO DM meds and are transitioning her to insulin.
[2019-03-20] MEDS: Potassium Chloride 20 MEQ TAB PO SCH (07:57)
[2019-03-20 08:14] LABS: Anion Gap 9 mmol/L (10-20); BUN (Urea Nitrogen) 8 mg/dL (9.8-20.1); Calc. Creatinine Clearance 61 mL/min (70-130); Calcium 8.6 mg/dL (7.8-10.44); Carbon Dioxide 23 mmol/L (23-31); Chloride 111 mmol/L (98-107); Estimated GFR-MDRD 65; Glucose 97 mg/dL (83-110); Sodium 140 mmol/L (136-145)
[2019-03-20 08:54] LABS: #Eosinphils 0.1 thou/uL (0.0-0.7); #Lymphocytes 0.8 thou/uL (1.20-3.40); #Monocytes 0.2 thou/uL (0.11-0.59); #Neutrophils 1.4 thou/uL (1.40-6.50); %Basophils 1.9 % (0.0-1.0); %Eosinophils 4.3 % (0.0-10.0); %Lymphocytes 31.3 % (21.0-51.0); %Monocytes 7.3 % (0.0-10.0); %Neutrophils 55.2 % (42.0-75.0); Hemoglobin 8.1 g/dL (12.0-16.0); Mean Corpuscular HGB CONC 34.9 g/dL (32.0-36.0); Mean Corpuscular Hemoglobin 32.4 pg (27.0-31.0); Mean Corpuscular Volume 92.6 fL (78.0-98.0); Mean Platelet Volume 8.6 fL (7.4-10.4); Platelet Count 81 thou/uL (130-400); RBC Distribution Width 12.7 % (11.5-14.5); White Blood Cell (WBC) Count 2.6 thou/uL (4.8-10.8)
[2019-03-20] MEDS ORDERED: Insulin Glargine 10 UNITS in Pre-Filled Syringe SC SCH (09:00)
[2019-03-20] MEDS: Ondansetron PF 4 MG/2 ML Vial IVP PRN ×2 (09:39→18:10)
[2019-03-20] MEDS: Amlodipine 5 MG TAB PO SCH (09:41)
[2019-03-20] MEDS: Metoclopramide HCl 10 MG TAB PO SCH ×3 (09:42→20:56)
[2019-03-20] MEDS: Sodium Bicarbonate Tab 325 MG TAB PO SCH ×2 (09:43→20:56)
[2019-03-20] MEDS: HumaLOG 300 UNITS/3 ML VIAL SC PRN (11:20)
[2019-03-20 15:21] LABS: Anion Gap 12 mmol/L (10-20); BUN (Urea Nitrogen) 8 mg/dL (9.8-20.1); Calc. Creatinine Clearance 58 mL/min (70-130); Calcium 8.7 mg/dL (7.8-10.44); Carbon Dioxide 22 mmol/L (23-31); Chloride 109 mmol/L (98-107); Estimated GFR-MDRD 62; Glucose 130 mg/dL (83-110); Potassium 3.8 mmol/L (3.5-5.1); Sodium 139 mmol/L (136-145)
[2019-03-20] MEDS: Valsartan 80 MG TAB PO SCH (20:56)
[2019-03-21] MEDS: Piperacillin/Tazobactam 2.25 GM in Sodium Chloride 0.9% 100 ML IVPB SCH ×2 (00:03→05:40)
[2019-03-21] MEDS: Acetaminophen 325 MG TAB PO PRN ×3 (00:05→14:12)
[2019-03-21] MEDS: Lactated Ringer's 1,000 ML IV SCH (04:14)
--- NOTE | 2019-03-21 07:30 | PDOC.FM ---
- Subjective Subjective: Pt did well overnight. She reports having 2 BMs overnight but has improving stool consistency. She states she feels comfortable going home but her family live 1.5 hours away. - Objective MAR Reviewed: Yes Vital Signs & Weight: Vital Signs (12 hours) Temp Pulse Resp BP Pulse Ox 03/21/19 05:00 98.0 F 74 16 117/62 96 03/21/19 00:43 98.6 F 82 16 130/79 98 03/20/19 20:39 98.4 F 85 16 116/69 98 03/20/19 20:10 98 Weight Admit Weight 62.868 kg Weight 64.183 kg I&O: 03/20/19 03/21/19 03/22/19 06:59 06:59 06:59 Intake Total 1790 2400 Output Total 800 Balance 990 2400 Result Diagrams: 03/20/19 07:46 03/21/19 08:52 Phys Exam - Physical Examination Constitutional: NAD HEENT: moist MMs Neck: no JVD Respiratory: no wheezing, no rales, no rhonchi, clear to auscultation bilateral Cardiovascular: RRR, no significant murmur Gastrointestinal: soft, no distention, positive bowel sounds Mild tenderness to palpation over abdomen Musculoskeletal: no edema, pulses present Neurological: normal sensation, moves all 4 limbs Psychiatric: A&O x 3 Skin: cap refill <2 seconds Dx/Plan (1) Complicated UTI (urinary tract infection) Code(s): N39.0 - URINARY TRACT INFECTION, SITE NOT SPECIFIED Status: Acute (2) Diarrhea Code(s): R19.7 - DIARRHEA, UNSPECIFIED Status: Acute (3) DM2 (diabetes mellitus, type 2) Status: Chronic Qualifiers: Diabetes mellitus buttermaker continuous churn insulin use: without care home use Diabetes mellitus complication status: with hyperglycemia Qualified Code(s): E11.65 - Type 2 diabetes mellitus with hyperglycemia (4) HTN (hypertension) Code(s): I10 - ESSENTIAL (PRIMARY) HYPERTENSION Status: Chronic Qualifiers: Hypertension type: unspecified Qualified Code(s): I10 - Essential (primary ) hypertension - Plan Plan: This is a 73 yo female with a pmh of DM2, HTN, pancreatic cancer Sepsis 2/2 UTI +/- pyelonephritis (some fat stranding around right kidney on CT) -Continue zosyn, culture on 03/14 shows klebsiella sensitive to zosyn, transitioning to omnicef -Pending blood/urine cultures done in [place] ER -Right kidney draining to urostomy -Afebrile overnight Diarrhea, resolving -Stool negative for C. diff, shiga toxin, ova/parasites Nausea -Restarting home compazine Pancreatic cancer, metastatic Hx of colon cancer EDWIN 2/2 dehydration -Fluid resuscitation -Will follow Non-anion gap, hyperchloremic metabolic acidosis, improving -Likely from NS fluid resuscitation (3300ml NS in last 24 hr) -Currently on LR, will switch to 1/2 NS if this does not improve Hypokalemia -Replacing with oral solution due to pill size DM2 -DC PO meds, transitioning to insulin only, titrating to effective long acting insulin -Hgb A1c 7.2, near/at goal for this pt -Adding atorvastatin 20mg hs HTN -Restart home medications as BP is elevated at this point Addendum - Attending - Attending Attestation Date/Time: 03/21/19 8395 I personally evaluated the patient and discussed the management with Dr. Arellano. I agree with the History, Examination, Assessment and Plan documented above with any addition or exceptions noted below. Doing better today. Minimal nausea and pain. No fever/chills. Exam unremarkable. Hopeful d/c today.
[2019-03-21] MEDS: Sodium Bicarbonate Tab 325 MG TAB PO SCH (08:31)
[2019-03-21] MEDS: Metoclopramide HCl 10 MG TAB PO SCH (08:32)
[2019-03-21] MEDS: Amlodipine 5 MG TAB PO SCH (08:32)
[2019-03-21] MEDS ORDERED: Insulin Glargine 12 UNITS in Pre-Filled Syringe 1 EACH SC SCH (09:00)
[2019-03-21] MEDS ORDERED: Cefdinir 300 MG CAP PO SCH (09:00)
[2019-03-21 09:29] LABS: Anion Gap 13 mmol/L (10-20); BUN (Urea Nitrogen) 5 mg/dL (9.8-20.1); Calc. Creatinine Clearance 60 mL/min (70-130); Calcium 8.9 mg/dL (7.8-10.44); Carbon Dioxide 22 mmol/L (23-31); Chloride 106 mmol/L (98-107); Estimated GFR-MDRD 64; Glucose 130 mg/dL (83-110); Potassium 3.6 mmol/L (3.5-5.1); Sodium 137 mmol/L (136-145)
[2019-03-21] MEDS: Morphine IR Tab 15 MG TAB PO PRN (09:32)
[2019-03-21 11:38] VITALS: BP 145/82; TEMP 98.5
[2019-03-21] MEDS ORDERED: Atorvastatin Calcium 20 MG TAB PO SCH (21:00)
--- NOTE | 2019-03-23 03:49 | PQF ---
RORY CLEARY BRANDON [id number] CLINICAL DOCUMENTATION CLARIFICATION FORM: POST DISCHARGE Addendum to original discharge summary date: ____ Late entry note date: __ DATE: 03/23/19 ATTN: Thang Cardenas Please exercise your independent, professional judgment in responding to the clarification form. Clinical indicators are provided on the bottom of this form for your review Please check appropriate box(s): [ ] Sepsis secondary to UTI is a complication of Urostomy [ ] Sepsis secondary to UTI is not a complication of Urostomy [ ] Other condition, please specify: [ x] Unable to determine In addition, please specify: Present on Admission (POA): [ x ] Yes [ ] No [ ] Unable to determine CLINICAL INDICATORS - SIGNS / SYMPTOMS / LABS Family Med H&P p1 03/18 Dr Orellana Diarrhea is watery and foul-smelling [facility] Med H&P p1 03/18 Dr Orellana Has uretero-colostomy bag Family Med H&P p5 03/18 Dr Orellana transfer from [facility], lactic 1.6 on admission. Sepsis criteria met with tachycardia, WBC 4.5 Family Med H&P p5 03/18 Dr Orellana UA w/ 3+ bacteria, protein, glucose and darryl pyuria RISK FACTORS Family Med H&P p5 03/18 Sepsis 2/2 complicated UTI (Pyelonephritis) Family Med H&P p5 03/18 EDWIN TREATMENT: Family Med H&P p5 03/18 Renal Dose for Zosyn 2.25g q6h Family Med H&P p5 03/18 Fluid resuscite JUL 17 IV Vancomycin JUL 17 IV Zosyn (This form is maintained as a part of the permanent medical record) 2014 [employer]. All Rights Reserved [email or web address] [[email or web address]] [email or web address]
== END 2019-03-21 14:31 | disposition home health service (06) | DRG 872 ==
LOC: ERS 21:28 → 2NO 22:21 → T4-A 03-20 17:46
PROVIDERS: ADMIT Family Medicine; ATTEND Family Medicine
DX: A41.9 Sepsis, unspecified organism (principal); N17.9 Acute kidney failure, unspecified; C78.89 Secondary malignant neoplasm of other digestive organs; E87.2 Acidosis; N12 Tubulo-interstitial nephritis, not specified as acute or chronic; E86.0 Dehydration; E87.6 Hypokalemia; R19.7 Diarrhea, unspecified; E11.9 Type 2 diabetes mellitus without complications; Z90.5 Acquired absence of kidney; Z85.038 Personal history of other malignant neoplasm of large intestine; Z93.6 Other artificial openings of urinary tract status; Z79.899 Other long term (current) drug therapy; Z79.84 Long term (current) use of oral hypoglycemic drugs; Z93.3 Colostomy status
CPT/HCPCS: 36415; 36416; 80048; 83036; 83630; 85025; 87045; 87046; 87324; 87328; 87329; 87427; 87449; 96361; 96365; 96375; J1815; J2270; J2405; J2543; J2550; J3490; Q0162; Q0164